=== PATIENT | female | born 1980 | race Caucasian/White ===

== ENCOUNTER 2018-11-16 16:51 | Inpatient (IN) | payer BC ==
[2018-11-16] MEDS ORDERED: Buffered Lidocaine 1% SYRIN* 1 ML/SYRINGE INTRADERM ONE (19:59)
[2018-11-16] MEDS ORDERED: Lactated Ringers 1000 ML Bag* 1,000 ML IV SCH ×2 (20:00→22:00)
--- NOTE | 2018-11-16 20:09 | HP ---
General Information - Reason for Visit Patient reports contractions increasing in intensity since this morning. Now approx q 2-4 min. - General Information Maternal Age: 38 Grav: 1 Para: 0 SAB: 0 IEA: 0 Estimated Due Date: 11/18/18 Determined By: LMP Maternal Blood Type and Rh: B Positive - Results this Serology/RPR Result: Non-Reactive Rubella Result: Immune HBsAg Result: Negative HIV Result: Negative GBS Culture Result: Negative Past Medical History Delivery History: See Records Delivery History Comment: No previous pregnancies Pertinent Past Medical History: Non-Contributory Pertinent Past Surgical History: See Records Past Surgical History Comment: Tonsillectomy 2007 Pertinent Family History: Non-Contributory Family History Comment: [place] Stroke Parkinson's - Antepartal Records Antepartal Records: Reviewed, Complicated by: - AMA, HSV, LEEP x2 Review of Systems Constitutional: Uncomfortable CV Complaint: No Respiratory: Shortness of Breath: No Gastrointestinal: No Nausea/Vomiting, Soft Stool Genitourinary: No Dysuria, No Bleeding, No Leaking Fluid Musculoskeletal: Contractions Neurological: No Headache, No Visual Changes Movement: Normal Exam Allergies/Adverse Reactions: Allergies No Known Allergies Allergy (Verified 11/16/18 17:45) BP 111/73 T 97.8 HR 79 RR 18 O2 99% - Measurements Height: 5 ft 5 in Weight: 183 lb Weight in lbs: [phone] Body Mass Index (BMI): 30.4 Pre- Weight: 148 lb Weight Gained This : 35 lbs and 0 ozs - Exam Breast: Breast Exam Deferred CVA: No CVA Tenderness Extremities: No Edema Heart: Normal Rhythm/Heart Sounds HEENT: No Significant Findings Lungs: Clear Bilaterally Rectal: Rectal Exam Deferred Thyroid: - - WNL @ entry to care - Abdominal Exam Abdomen Exam: Non-Tender, Fundal Height Consistent with Dates - Ultrasound/Biophysical Profile Ultrasound Status: Not Done Targeted Exam Findings See L&D Outpatient Visit Provider Note for Findings: N/A Estimated Weight: 7.5-8lb Cervical Exam: Fingertip Effacement: 100% Station: 0 Presenting Part: Vertex Membrane Status: Intact Bleeding/Discharge: None EFM Findings - External Monitor Findings Baseline Heart Rate: 130 External Monitor Findings: Accelerations Present, No Pattern of Variable or Late Decelerations, Variability Moderate Contractions: Regular, Strong, 45-90 Seconds Contraction Frequency: Q 2-3 min Assessment/Plan - Assessment IUP @ 39+5 weeks gestation in active labor. Hx LEEP procedures on cervix leading to likely scar tissue. IBOW. No evidence metabolic acidemia - Plan Plan: Admit - Anticipate Vaginal Delivery Plan Comment: Admit to L&D. PARQ discussion of pain medication options and patient would like to opt for epidural. Once patient comfortable will reassess. Anticipate SVB. - Date/Time of Admission Date of Admission: 11/16/18 Time of Admission: 08:30
[2018-11-16 20:23] LABS: ABS Basophils 0.1 10^3/ul (0-0.2); ABS Lymphocytes 1.8 10^3/ul (1.0-4.8); ABS Monocytes 0.7 10^3/ul (0-0.8); ABS Neutrophils 16.4 10^3/ul (1.5-7.7); Hematocrit 39 % (35-47); Hemoglobin 12.8 g/dL (12.0-16.0); Lymphocyte % 9.3 %; Mean Corpuscular HGB Conc 33 g/dL (31-36); Mean Corpuscular Hemoglobin 31 pg (27-31); Mean Corpuscular Volume 93 fL (80-97); Mean Platelet Volume 9.1 fL (7.4-10.4); Platelet Count 303 10^3/uL (150-450); Red Blood Count 4.15 10^6 /uL (3.70-4.87); Red Cell Distribution Width 14 % (10.5-15)
[2018-11-16] MEDS ORDERED: OBEPIDURAL* 250 ML EPIDURAL ONE (20:45)
[2018-11-16] MEDS: Lactated Ringers 1000 ML Bag* 1,000 ML IV ONE ×2 (21:18→21:26)
[2018-11-16] MEDS ORDERED: Lactated Ringers 1000 ML Bag* 1,000 ML IV ONE (21:25)
[2018-11-16] MEDS ORDERED: Famotidine TAB* 20 MG PO PRN (21:25)
[2018-11-16] MEDS ORDERED: Sodium Citrate/Citric Acid* 15 ML UDC PO PRN (21:25)
[2018-11-16] MEDS ORDERED: Phenylephrine 40 MCG/ML SYRINGE IV PUSH PRN (21:25)
[2018-11-16] MEDS ORDERED: OBEPIDURAL* 250 ML EPIDURAL SCH (22:00)
[2018-11-17] MEDS ORDERED: Dibucaine 1% 28.35 GM TUBE PR PRN (07:09)
[2018-11-17] MEDS ORDERED: Glycerin ADULT SUPP PR PRN (07:09)
[2018-11-17] MEDS ORDERED: Witch Hazel PAD* JAR TOPICAL PRN (07:09)
[2018-11-17] MEDS ORDERED: Acetaminophen TAB* 325 MG PO PRN (07:09)
--- NOTE | 2018-11-17 07:22 | PN ---
Progress Note - Progress Note Date of Service: 11/16/18 - Note time 2150 Note: S: Patient now comfortable with epidural. O: VE deferred FHT 130, +accels, no decels, mod govind VSS, afebrile UCs q 2-4 min A: IUP @ 39+5 weeks gestation in active labor No evidence metabolic acidemia P: Encourage rest/sleep and position changes when awake. Will recheck cervical dilation with increased pressure or urge to push or approx 4-6 hours. Anticipate SVB.
[2018-11-17] MEDS ORDERED: Lactated Ringers 1000 ML Bag* 1,000 ML IV SCH (08:00)
--- NOTE | 2018-11-17 08:10 | PROCNOTE ---
[facility] OB: Delivery Note - Nursery Level of Nursery: Regular/Bedside - Perineum Perineal Injury: 1st Degree Perineal Repair: By Delivering Practioner - 3-0 Rapide - Additional Delivery Notes Additional Delivery Notes: Patient admitted with regular contractions and cervical change but no dilation due to LEEP scarring. Opted for epidural with good pain relief and progressed to complete dilation with feeling of pressure and urge to push. LOL 15'12", pushed 2'18". Baby born OA to DEE @ 0631, delivered to maternal abdomen with spontaneous cry, HR >110. Cord doubly clamped and cut by CNM once pulsations ceased. Placenta delivered with gentle cord traction @ 0642 in Diez presentation. Marginal cord insertion, intact appearing membranes, 3VC. Fundus firm to massage. Repair as above. Baby at breast to initiate . Mother and baby stable and well.
[2018-11-17] MEDS: Docusate CAP* 100 MG PO SCH ×3 (09:05→20:45)
[2018-11-17] MEDS: Ibuprofen TAB* 600 MG PO PRN ×2 (14:29→20:44)
--- NOTE | 2018-11-17 16:28 | PTEDU ---
Patient Name: GILLIAN POLLACK GILLIAN POLLACK selected video: Follow Me Mum: The [place] to Successful to view on 11/17 at 4:27:57 PM from [id number]
--- NOTE | 2018-11-17 16:48 | PTEDU ---
Patient Name: GILLIAN POLLACK GILLIAN POLLACK selected video: Never Ever Shake a Baby to view on 11/17/2018 at 4:47:22 PM from [email or web address]
--- NOTE | 2018-11-17 16:56 | PTEDU ---
Patient Name: GILLIAN POLLACK GILLIAN POLLACK selected video: BBOB: Nurturing Your Gorgeous &Growing Baby by to shaun schneider on 11/17/2018 at 4:55:56 PM from [email or web address]
[2018-11-18] MEDS: Ibuprofen TAB* 600 MG PO PRN (06:19)
[2018-11-18 07:31] LABS: ABS Basophils 0.1 10^3/ul (0-0.2); ABS Eosinophils 0.1 10^3/ul (0-0.6); ABS Lymphocytes 2.7 10^3/ul (1.0-4.8); ABS Neutrophils 10.4 10^3/ul (1.5-7.7); Eosinophil % 0.7 %; Hematocrit 29 % (35-47); Hemoglobin 9.6 g/dL (12.0-16.0); Lymphocyte % 18.7 %; Mean Corpuscular HGB Conc 33 g/dL (31-36); Mean Corpuscular Hemoglobin 31 pg (27-31); Mean Corpuscular Volume 95 fL (80-97); Mean Platelet Volume 8.3 fL (7.4-10.4); Nucleated Red Blood Cells % 0.1; Platelet Count 252 10^3/uL (150-450); Red Blood Count 3.08 10^6 /uL (3.70-4.87); Red Cell Distribution Width 14 % (10.5-15); White Blood Count 14.2 10^3/uL (3.5-10.8)
[2018-11-18] MEDS: Docusate CAP* 100 MG PO SCH ×3 (08:47→20:18)
[2018-11-18] MEDS: Ferrous Gluconate TAB* 324 MG TAB PO SCH ×2 (08:47→20:18)
--- NOTE | 2018-11-18 16:05 | PTEDU ---
Patient Name: GILLIAN POLLACK GILLIAN POLLACK selected video: BBOB: Bonding Through Massage to view on 11/18/2018 at 4:04: 52 PM from [email or web address]
[2018-11-19] MEDS: Ibuprofen TAB* 600 MG PO PRN (06:14)
[2018-11-19 08:43] VITALS: BP 112/77
[2018-11-19] MEDS: Ferrous Gluconate TAB* 324 MG TAB PO SCH (08:52)
[2018-11-19] MEDS: Docusate CAP* 100 MG PO SCH (08:52)
== END 2018-11-19 12:49 | disposition home or self-care (01) | DRG 560 ==
LOC: MCHOBOUT 16:51 → MCHOB 19:54
PROVIDERS: ADMIT Midwife; ATTEND Midwife
PROC: 10E0XZZ Delivery of Products of Conception, External Approach (ICD-10-PCS; principal; 2018-11-17)
PROC: 0HQ9XZZ Repair Perineum Skin, External Approach (ICD-10-PCS; 2018-11-17)
DX: O70.0 First degree perineal laceration during delivery (principal); Z37.0 Single live birth; O90.81 Anemia of the puerperium; D64.9 Anemia, unspecified; Z3A.39 39 weeks gestation of pregnancy
CPT/HCPCS: 36415; 85025; 86850; 86900; 86901; A9270-GY